=== PATIENT | female | born 1950 | race Caucasian/White ===

== ENCOUNTER 2024-02-10 13:45 | Inpatient (IN) | payer SELFPAY ==
[2024-02-10 13:54] VITALS: BP 107/54; PULSE 51; O2SAT 95
[2024-02-10 14:13] VITALS: BP 87/36; PULSE 53; RESP 20; TEMP 37.1; O2SAT 97; BMI 29.0
--- NOTE | 2024-02-10 14:18 | ECG_ITS ---
Test Reason : syncope Blood Pressure : / mmHG Vent. Rate : 054 BPM Atrial Rate : 054 BPM P-R Int : 166 ms QRS Dur : 082 ms QT Int : 458 ms P-R-T Axes : 051 037 074 degrees QTc Int : 434 ms Sinus bradycardia with occasional Premature ventricular complexes Nonspecific ST and T wave abnormality Abnormal ECG No previous ECGs available Referred By: Masood Newman Electronically Signed By:TROY POWER MD
[2024-02-10] MEDS: 0.9 % Sodium Chloride 1,000 ML 999 ML IV (14:29)
[2024-02-10 14:57] LABS: Basophils Percent Auto 0.3 % (0-2); Eosinophils Absolute Auto 0.2 X10*3/uL (0.0-0.4); Eosinophils Percent Auto 1.8 % (0-4); Hemoglobin 12.6 g/dl (12.0-16.0); Imm Gran Abs Auto 0.11 X10*3/uL (0.00-0.03); Imm Gran Pct Auto 0.8 % (0.0-0.4); Lymphocytes Absolute Auto 3.7 X10*3/uL (1.2-4.9); Lymphocytes Percent Auto 27.3 % (20-40); MANUAL DIFF FLAG SCAN; Mean Corpuscular HGB Conc 33.2 g/dl (31.0-35.0); Mean Corpuscular Hemoglobin 29.8 pg (27.0-33.0); Mean Corpuscular Volume 89.8 fL (80.0-98.0); Monocytes Absolute Auto 1.5 X10*3/uL (0.1-1.2); Monocytes Percent Auto 11.3 % (2-11); Neutrophils Absolute Auto 7.8 x10*3/uL (2.0-8.3); Neutrophils Percent Auto 58.5 % (45-73); Platelet Count 277 X10*3/uL (160-400); Red Blood Count 4.23 X10*6/uL (4.20-5.50); Red Cell Distribution Width 15.1 % (11.0-16.0); SCAN SMEAR FLAG 1; White Blood Count 13.4 X10*3/uL (4.8-10.8)
--- NOTE | 2024-02-10 15:00 | PC.NURSE ---
overhead for lab redraw. contacted lab and blood blank to determine specimen needed. blood bank stated purple top was hemolyized. made aware. MD Newman states no need for redraw at this time as patients hb/hct were stable.
[2024-02-10 15:15] LABS: SLIDE REVIEW VERIFIED
[2024-02-10 15:26] LABS: Troponin-I High Sensitivity 5.6 ng/L (<3.5-17.0)
[2024-02-10 15:40] VITALS: BP 111/46; PULSE 67; RESP 16; O2SAT 94
[2024-02-10 16:21] LABS: INTERNATIONAL NORM RATIO 2.7 (0.9-1.1); Prothrombin Time 31.2 SEC (10.9-12.4)
[2024-02-10 16:27] LABS: Anion Gap 10 (12-20); Blood Urea Nitrogen 37 mg/dL (9-16); Calcium 8.9 mg/dL (8.4-10.2); Carbon Dioxide 26 mmol/L (22-29); Chloride 105 mmol/L (96-108); Creatinine Clr Calc Pharmacy 36.3; Estimated Glomerular Filt Rate 32; Glucose Random 103 mg/dL (60-115); Potassium 4.1 mmol/L (3.3-5.1); Sodium 137 mmol/L (135-145)
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
--- NOTE | 2024-02-10 18:06 | PC.NURSE ---
patient family contact is [facility] [phone] when updates on patient status are given.
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
[2024-02-10 18:51] VITALS: BP 96/52; PULSE 61; RESP 13; TEMP 36.8; O2SAT 95
[2024-02-10 18:51] LABS: Troponin-I High Sensitivity 5.3 ng/L (<3.5-17.0)
--- NOTE | 2024-02-10 18:54 | MHC.EDTECH ---
This tech [place] Txt dr See re: pt low BP readngs: 85/40 and 80/32.
[2024-02-10] MEDS: 0.9 % Sodium Chloride 1,000 ML 999 ML IVCONT (19:03)
[2024-02-10 19:56] VITALS: O2SAT 98
--- NOTE | 2024-02-10 20:15 | PHA.MEDREC ---
Addendum entered by Layo Maravilla [facility] 02/10/24 20:31: PATIENT SAID THEY ARE GETTING RECHECKED ON TUESDAY AND DONT HAVE A SET WEEKLY DOSE YET Original Note: Pharmacy Consult ? Medication Reconciliation Pharmacy has completed the medication reconciliation. Spoke to patient to confirm med list . Patient was a poor historian. Patent states she get her medication though [facility]. Spoke to Masood from [facility] ([phone]) and he was able to confirm patient active are Carvedilol 12.5 bid, Nexium 40 mg daily, Repatha 140 mg q 14 days, Fluoxetine 20 mg daily, Nitroglycerin 0.4 prn, and Warfarin 1-2 tablets daily per INR. I went back and spoke to patient about Warfarin dose. Patient states she received a message from her DR today with new dose instructions because patient INR was 3.5. the new direction from the Dr is nothing today 02/10/24 6 mg on Tuesday02/11/24 5 mg on Tuesday02/12/24 6 mg on Tuesday02/13/24 and 6 mg on Tuesday02/14/24. patient states her last dose of Repatha was 1 week ago
[2024-02-10] MEDS: Lactated Ringers 1,000 ML 150 ML IVCONT (20:25)
[2024-02-10 21:53] VITALS: BP 105/44; PULSE 59; RESP 17; TEMP 36.2; O2SAT 94
[2024-02-11] VITALS (8 sets, daily range): BP systolic 117–172; BP diastolic 62–82; PULSE 58–68; RESP 16–18; TEMP 36–37.3; O2SAT 95–97; BMI 30.1
[2024-02-11] MEDS: Lactated Ringers 1,000 ML 150 ML IVCONT (03:28)
[2024-02-11 05:02] LABS: Appearance Urine Clear; Color Urine Yellow; Glucose Urine UA Negative (Negative); Leukocyte Esterase Urine Small (1+) (Negative); Nitrite Urine Negative (Negative); Specific Gravity - Urine 1.015 (1.005-1.025); UMIC TRIGGER UA YES; Urine Blood Moderate (2+) (Negative); Urine Ketones Negative (Negative); Urine Protein Negative (Neg-Trace)
[2024-02-11 05:06] LABS: Bacteria Urine None Seen (None Seen); Hyaline Casts Urine 0-2 /LPF (0-2); Squamous Epithelial Cell Urine 0-2 /HPF (0-2)
[2024-02-11] MEDS: Omeprazole 20 MG CAPSULE.DR PO (05:57)
[2024-02-11 07:51] LABS: Hematocrit 38.9 % (37.0-47.0); Hemoglobin 12.7 g/dl (12.0-16.0); Mean Corpuscular HGB Conc 32.6 g/dl (31.0-35.0); Mean Corpuscular Hemoglobin 29.6 pg (27.0-33.0); Mean Corpuscular Volume 90.7 fL (80.0-98.0); Mean Platelet Volume 10.4 fL (9.4-12.3); Platelet Count 277 X10*3/uL (160-400); Red Blood Count 4.29 X10*6/uL (4.20-5.50); White Blood Count 11.6 X10*3/uL (4.8-10.8)
[2024-02-11 07:56] LABS: INTERNATIONAL NORM RATIO 2.1 (0.9-1.1); Prothrombin Time 24.3 SEC (10.9-12.4)
[2024-02-11] MEDS: FLUoxetine HCl 20 MG CAPSULE PO (08:08)
[2024-02-11 08:10] LABS: Anion Gap 12 (12-20); Blood Urea Nitrogen 25 mg/dL (9-16); Calcium 9.1 mg/dL (8.4-10.2); Carbon Dioxide 28 mmol/L (22-29); Chloride 107 mmol/L (96-108); Creatinine Clr Calc Pharmacy 50.8; Estimated Glomerular Filt Rate 47; Glucose Random 99 mg/dL (60-115); Potassium 4.5 mmol/L (3.3-5.1); Sodium 142 mmol/L (135-145)
--- NOTE | 2024-02-11 08:58 | HO.PM.IMPN ---
Subjective Subjective Date of Service: 02/11/24 Interval History: f/u on syncope, hypotension, and myles myles resolved, BP is better Physical Exam Vital Signs: Vital Signs: Last Vital Signs Temp 98.2 F 02/11/24 08:00 Pulse 65 02/11/24 08:27 Resp 16 02/11/24 08:00 BP 117/62 02/11/24 08:27 Pulse Ox 96 02/11/24 08:00 O2 Del Method Room Air 02/11/24 08:00 BMI result Body Mass Index 30.1 Const: Other: General: AO X 3, no acute distress Resp: CTA bilateral CVS: S1,S2,RRR GI: +BS, NT, no distention Skin: No rash Neuro: motor grossly intact Psych: appropriate affect Objective Data Active Medications Acetaminophen (Acetaminophen 325 Mg Tablet) 650 mg PO Q6H PRN PRN Reason: Pain, Mild (Pain Scale 1-3), fever or headache Albuterol Sulfate (Albuterol Sulfate 90 Mcg 8 Gm Inhaler) 2 puff INHALE RQ4H [facility] Last Admin: 02/11/24 05:01 Dose: Not Given Documented By: ES Non-Admin Reason: Patient Asleep Calcium Carbonate (Calcium Carbonate 750 Mg Tab.Chew) 750 mg PO Q4H PRN PRN Reason: Heartburn Fluoxetine HCl (Fluoxetine Hcl 20 Mg Capsule) 20 mg PO DAILY [facility] Last Admin: 02/11/24 08:08 Dose: 20 mg Documented By: ACE Magnesium Hydroxide (Milk Of Magnesia 30 Ml Oral.Susp) 30 ml PO DAILY PRN PRN Reason: Constipation Melatonin (Melatonin 3 Mg Tablet) 6 mg PO BEDTIME PRN PRN Reason: Insomnia Nitroglycerin (Nitroglycerin 0.4 Mg Tab.Subl) 0.4 mg SUBLINGUAL Q15M PRN PRN Reason: Chest Pain Non-Formulary Medication (Evolocumab [Repatha Syringe]) 140 mg SUBCUT Q14D [facility] Omeprazole (Omeprazole 20 Mg Capsule.Dr) 20 mg PO DAILY@0630 [facility] Last Admin: 02/11/24 05:57 Dose: 20 mg Documented By: CLAUDIO Sodium Chloride (0.9 % Sodium Chloride Flush 3 Ml Syringe) 3 ml IVFLUSH QSHIFT [facility] Last Admin: 02/11/24 07:06 Dose: Not Given Documented By: ACE Non-Admin Reason: IV Running Warfarin Sodium (Warfarin Sodium 5 Mg Tablet) 5 mg PO SMITH [facility] Warfarin Sodium (Warfarin Sodium 6 Mg Tablet) 6 mg PO MOTUSA [facility] Labs 02/11/24 06:06 02/11/24 06:06 Labs: Laboratory Results - last 24 hr 02/10/24 02/10/24 02/10/24 14:45 16:04 18:18 MCV 89.8 MCH 29.8 MCHC 33.2 RDW 15.1 Plt Count 277 MPV 10.0 Immature Gran % (Auto) 0.8 H Neut % (Auto) 58.5 Lymph % (Auto) 27.3 [place] % (Auto) 11.3 H Eos % (Auto) 1.8 Baso % (Auto) 0.3 Lymph # (Auto) 3.7 [place] # (Auto) 1.5 H Eos # (Auto) 0.2 Baso # (Auto) 0.0 Abs Immat Gran (auto) 0.11 H Absolute Neuts (auto) 7.8 Absolute Nucleated RBC 0.000 Nucleated RBC % (auto) 0.0 Smear Tech's Comments VERIFIED Hold Purple Top SEE NOTE PT 31.2 H INR 2.7 H Anion Gap 10 L Estim Creat Clear Calc 36.3 Estimated GFR 32 Random Glucose 103 Calcium 8.9 Troponin I High Sens 5.6 5.3 Urine Color Urine Appearance Urine pH Ur Specific [place] Urine Protein Urine Glucose (UA) Urine Ketones Urine Blood Urine Nitrite Ur Leukocyte Esterase Urine RBC Urine WBC Ur Squamous Epith Cells Urine Bacteria Hyaline Casts Blood Type Cancelled Antibody Screen Cancelled 02/11/24 02/11/24 06:06 Unknown MCV 90.7 MCH 29.6 MCHC 32.6 RDW 15.0 Plt Count 277 MPV 10.4 Immature Gran % (Auto) Neut % (Auto) Lymph % (Auto) [place] % (Auto) Eos % (Auto) Baso % (Auto) Lymph # (Auto) [place] # (Auto) Eos # (Auto) Baso # (Auto) Abs Immat Gran (auto) Absolute Neuts (auto) Absolute Nucleated RBC 0.000 Nucleated RBC % (auto) 0.0 Smear Tech's Comments Hold Purple Top PT 24.3 H D INR 2.1 H Anion Gap 12 Estim Creat Clear Calc 50.8 Estimated GFR 47 Random Glucose 99 Calcium 9.1 Troponin I High Sens Urine Color Yellow Urine Appearance Clear Urine pH 6.0 Ur Specific [place] 1.015 Urine Protein Negative Urine Glucose (UA) Negative Urine Ketones Negative Urine Blood Moderate (2+) H Urine Nitrite Negative Ur Leukocyte Esterase Small (1+) H Urine RBC 6-10 H Urine WBC 11-20 H Ur Squamous Epith Cells 0-2 Urine Bacteria None Seen Hyaline Casts 0-2 Blood Type Antibody Screen Assessment and Plan (1) Acute renal insufficiency: Status: Acute (2) Dehydration: Status: Acute (3) Syncope and collapse: Status: Acute Plan 73/F with syncope related to low BP, probably as a result of BP meds, also with MYLES, likely pre-renal from renal hypoperfusion Syncope d/t hypotension likely from meds, BP better. +orthostatic -hydrated with IVF, and holding BP meds Hypertension--hold meds MYLES--d/t hypotension and renal hypoperfusion, resolved with IVF h/o PE, on coumadin INR 2.1, resume coumadin today GERD-PPI DVT prophy--coumadin Quality Stroke Does the patient have a stroke diagnosis?: No VTE Prior VTE?: Yes VTE Risk Level:: Medical - low VTE Device Contraindication: Treatment Not Indicated VTE Drug Contraindication: N/A - Med Ordered
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
[2024-02-11] MEDS: Warfarin Sodium 6 MG TABLET PO (17:00)
[2024-02-11] MEDS: 0.9 % Sodium Chloride Flush 3 ML SYRINGE IVFLUSH (19:17)
[2024-02-12] VITALS (8 sets, daily range): BP systolic 116–172; BP diastolic 56–72; PULSE 58–64; RESP 14–20; TEMP 36.2–36.7; O2SAT 96
[2024-02-12] MEDS: Omeprazole 20 MG CAPSULE.DR PO (05:40)
[2024-02-12] MEDS: 0.9 % Sodium Chloride Flush 3 ML SYRINGE IVFLUSH (07:33)
[2024-02-12] MEDS: FLUoxetine HCl 20 MG CAPSULE PO (07:33)
[2024-02-12 07:39] LABS: Hematocrit 36.9 % (37.0-47.0); Hemoglobin 12.7 g/dl (12.0-16.0); Mean Corpuscular HGB Conc 34.4 g/dl (31.0-35.0); Mean Corpuscular Hemoglobin 30.3 pg (27.0-33.0); Mean Corpuscular Volume 88.1 fL (80.0-98.0); Platelet Count 299 X10*3/uL (160-400); Red Blood Count 4.19 X10*6/uL (4.20-5.50); Red Cell Distribution Width 14.6 % (11.0-16.0); White Blood Count 11.6 X10*3/uL (4.8-10.8)
[2024-02-12 08:04] LABS: INTERNATIONAL NORM RATIO 1.5 (0.9-1.1); Prothrombin Time 17.2 SEC (10.9-12.4)
--- NOTE | 2024-02-12 09:06 | MHC.CM.PN ---
Addendum entered by Julia Benitez 02/12/24 11:42: PT CLEARED TO DC HOME TODAY WITH [facility] IS ACCEPTING WILL TRANSPORT Original Note: PT REPORTS SHE LIVES WITH HER AND IS INDEPENDENT WITH CARE SHE HAS A WALKER BUT DOES NOT REQUIRE DME AT [facility] SHE SAYS SHE HAS A HCP NAMING HER , COPY REQUESTED PCP: GUERLINE FITZPATRICK IMM DELIVERED PT REPORTS CONCERN ABOUT NEW PRESCRIPTIONS SHE SAYS SHE GETS HER MEDS FROM [facility] BY [facility] USUALLY, BUT IT TAKES AT LEAST 10 DAYS SHE SAYS SHE COULD GET SOME FROM [facility] [place] TODAY, HOWEVER THIS IS NOT FULLY COVERED LIKE , SO SHE WOULD PREFER TO ONLY GET WHAT SHE NEEDS FROM [facility] AND THE REST BE SENT TO ONCE DISCHARGE MEDS ARE KNOWN CM WILL FOLLOW UP DCP: HOME NO SERVICES TO TRANSPORT
--- NOTE | 2024-02-12 10:11 | P.F2F_ITS ---
Service Date Service Date: 02/12/24 Encounter Date of encounter: 02/12/24 Reasons for Services Signs and symptoms assessed: dizziness and hypotension Reason for prison: CV/CP assess and/or care Reason for physical therapy: home safety and mobility and restore joint function Homebound: Leaving the home is medically contraindicated at this time without the asist of a device and/or another person due th the listed conditions above and below. Reason homebound: unsteady gait / fall risk and fall risk related to blood pressure changes Homebound supporting statement: homebound due to dizziness, and hypotension due to blood pressure medication, still with blood pressure, risk of fall and needs the assistance of another person Certification: Based on the above findings, I certify that this patient is confined to the home and needs intermittent prison care, physical therapy and/or speech therapy, or continues to need occupational therapy. The patient is under my care, and I have initiated the establishment of the plan of care. The patient will be followed by a physician who will periodically review the plan of care. Time Spent With Patient Time: Total time managing care of this patient today ____ minutes.
== END 2024-02-12 12:05 | disposition home health service (06) | DRG 312 ==
LOC: HO.ED 17:29 → HO.EDOVER 19:02 → HO.S3 02-11 00:03
PROVIDERS: Student in an Organized Health Care Education/Training Program; Admitting Provider Internal Medicine; Emergency Provider Emergency Medicine; PCP Hospitalist; Visit Provider Internal Medicine
DX: I95.2 Hypotension due to drugs (principal); N17.9 Acute kidney failure, unspecified; T46.5X5A Adverse effect of other antihypertensive drugs, initial encounter; E86.0 Dehydration; K21.9 Gastro-esophageal reflux disease without esophagitis; I10 Essential (primary) hypertension; Z79.01 Long term (current) use of anticoagulants; Z86.711 Personal history of pulmonary embolism; Z79.899 Other long term (current) drug therapy
CPT/HCPCS: 36415; 80048; 81001; 84484; 85025; 85027; 85610; 86850; 86900; 86901; 93005; 99285; J7120

== ENCOUNTER → 2024-02-10 14:18 | Outpatient (BNV) | payer MEDICARE, OTHER, SELFPAY | PROVIDERS: Emergency Provider Emergency Medicine; PCP Hospitalist; Visit Provider Internal Medicine Cardiovascular Disease | DX: R94.31 Abnormal electrocardiogram [ECG] [EKG] (principal) | CPT/HCPCS: 93010 ==

== ENCOUNTER → 2024-02-10 18:48 | Outpatient (BNV) | payer MEDICARE, OTHER, SELFPAY | PROVIDERS: Admitting Provider Internal Medicine; Emergency Provider Emergency Medicine; PCP Hospitalist; Visit Provider Internal Medicine | DX: N28.9 Disorder of kidney and ureter, unspecified (principal); E86.0 Dehydration; R55 Syncope and collapse | CPT/HCPCS: 99223; 99232; 99239; G0180 ==